=== PATIENT | male | born 1970 | race Caucasian/White ===

== ENCOUNTER 2021-07-26 13:42 | Emergency (ER) | payer OTHER, SELFPAY ==
[2021-07-26 14:32] VITALS: BP 152/77; PULSE 82; RESP 16; TEMP 36.4; O2SAT 95; BMI 34.0
[2021-07-26 15:21] LABS: IDNOW Serial# 08D9AD1C; Influenza A Negative (Negative); Influenza B2 Negative (Negative)
[2021-07-26 15:22] LABS: COVID-19 Test Negative (Negative)
--- NOTE | 2021-07-26 16:30 | ED.GENADULT ---
HPI - General Adult General Chief complaint: Ear Problems Stated complaint: abd pain diarrhea ear pain Time Seen by Provider: 07/26/21 15:42 Source: patient Mode of arrival: ambulatory History of Present Illness HPI narrative: 50-year-old male with no significant past medical history presenting to the ER complaining of right ear pain, abdominal cramping, nausea, and diarrhea x4 days. Denies cough, SOB, CP, vomiting, fever, chills, drainage from ears/hearing loss Onset (ago): day(s) Related Data Allergies Allergy/AdvReac Type Severity Reaction Status Date / Time Penicillins [PCN] Allergy Unknown UNK Verified 07/26/21 14:31 Review of Systems Review of Systems: Constitutional: No Fever, No Chills ENT/Mouth: + Ear Pain, No Nasal Congestion, No sore throat, No Rhinorrhea, No Swallowing Difficulty Cardiovascular: No Chest Pain, No SOB Respiratory: No Cough Gastrointestinal: + Nausea, No Vomiting, + Diarrhea, No Constipation, + Abdominal cramping Genitourinary: No Dysuria, No Urinary Frequency, No Hematuria Musculoskeletal: No joint pain, No Myalgias, No Joint Swelling Skin: No Skin Lesions, No rash Neuro: No Weakness Yes all other systems are reviewed and are negative [facility] Past Medical History Attestation statement: The following information was validated with the patient. Social History Social History Advance Directives: No Advance Directives Information Provided: No Physical Exam ED Vital Signs: Vital Signs - 24 hr 07/26/21 14:32 Temperature 97.6 F Pulse Rate 82 Respiratory Rate 16 Blood Pressure 152/77 H Pulse Oximetry 95 BMI result Body Mass Index 34.0 Const General: cooperative, healthy appearing and no acute distress Orientation/consciousness: patient oriented x3 Limitations: no limitations HENMT Head: Yes normal to inspection and Yes atraumatic Ears: hearing grossly normal bilaterally, external ears normal, TM's normal bilaterally and mastoids normal General nose exam: Normal external nose present Face and sinus: Yes normal facial exam Mouth: Normal oral and palatal mucosa present Throat: Yes posterior oropharynx normal, Yes tonsils normal, Yes uvula midline, No peritonsillar mass, No uvula laterally displaced and No uvular edema Eyes General: appearance normal, both eyes and all related structures EOM: EOMs intact bilaterally Neck Neck: Yes normal visual inspection and Yes no meningeal signs Resp Effort & Inspection: normal respiratory effort and no respiratory distress Auscultation: clear to auscultation bilaterally, no crackles, no rales, no rhonchi and no wheezes Cardio Rate: regular rate Heart sounds: S1 normal heart sound present and S2 normal heart sound present GI Inspection: Yes normal to inspection Palpation (GI): Soft to palpation and nontender Skin Rashes: no rashes Wounds: no wounds Neuro General: patient oriented x3, tone normal and no meningeal signs Gait exam (Neuro): Normal gait present Extrem General: Yes normal to inspection Medical Decision Making MDM Narrative Medical decision making narrative: 50-year-old male with no significant past medical history presenting to the ER complaining of right ear pain, abdominal cramping, nausea, and diarrhea x4 days. On exam vital signs stable, NAD/nontoxic appearing, physical exam as above. Concern for viral illness including COVID-19 versus influenza vs gastroenteritis. Low concern for appendicitis/diverticulitis Plan: COVID-19/influenza Medical Records Medical records reviewed: Yes I reviewed the patient's medical records. Lab Data Lab results reviewed: Yes I reviewed the patient's lab results. Labs: Lab Results 07/26/21 07/26/21 Range/Units 14:35 14:35 COVID-19 (MENDEL) Negative (Negative) COVID-19 Clin Com See Note Influenza Type A (MARTIN) Negative (Negative) Influenza Type B (MARTIN) Negative (Negative) Influenza A & B Note See Note Discharge Plan Discharge Clinical Impression: Acute viral syndrome Patient Disposition: Home, Self-Care Instructions: Viral Syndrome (ED) Additional Instructions: You tested negative for COVID-19 and the flu. If symptoms persist or worsen please return to to the emergency department. Please follow-up with your doctor Referrals: Edu La PA [Primary Care Provider] - 3 days
== END 2021-07-26 16:57 | disposition home or self-care (01) ==
PROVIDERS: Emergency Provider Emergency Medicine; PCP Physician Assistant
DX: B34.9 Viral infection, unspecified (principal); H92.01 Otalgia, right ear; R25.2 Cramp and spasm; Z20.822 Contact with and (suspected) exposure to COVID-19
CPT/HCPCS: 87502; 87635; 99283

== ENCOUNTER 2024-08-11 14:14 | Outpatient (AMB) | payer OTHER, SELFPAY ==
[2024-08-11 14:44] VITALS: BP 114/72; PULSE 72; O2SAT 95; BMI 34.9
--- NOTE | 2024-08-11 14:44 | MHC.OFFVIS ---
Vital Signs 08/11/24 14:44 Height 5 ft 9 in Weight 236 lb 6 oz BMI 34.9 BP 114/72 Blood Pressure Location Lt brachial Position Sitting Pulse 72 Pulse Source Pulse Oximeter Pulse Oximetry (%) 95 Oxygen Delivery Method Room Air Intake Visit Reasons: Obstructive sleep apnea Allergies Penicillins [PCN] Allergy (Unknown, Verified 08/11/24 14:50) UNK HPI HPI Obstructive sleep apnea: Details: Yon is a pleasant 53 year old male, current smoker, with 30 pack year history with underlying KATHIA and asthma. He was referred by PCP for management of KATHIA and asthma. He reports prior sleep stusy in 2009 which revealed AHI 69 supine with minimal nocturnal hypoxemia. He started on CPAP therapy, unknown DME, however equipment was lost/[place]ed [place]. He has since been without CPAP therapy and continues with significant loud snoring, daytime fatigue and witnessed apneas. He is interested in restarting CPAP therapy. In regards to asthma, he was diagnosed as an adult, never requiring intubation. He currently uses combivent multiple times per week with good effect. He denies prior inhaler other than albuterol MDI. He continues with dyspnea on exertion and intermittent wheezing. He endorses seasonal allergies, no recent allergy testing. He has a dog at home. He denies any occupational exposures. He denies any pertinent family history. [facility] Social History (Updated 08/11/24 @ 14:49 by Amirah Gutiérrez [facility]) Patient Tobacco Use Status: Current everyday Tobacco user Cigarette Packs Per Day: 2 Cigarettes Per Day: 40 Review of Systems Const Denies chills, Denies excessive sweating, Denies fever(s), Denies headache(s) and Denies night sweats Eyes Denies dry eyes, Denies irritation and Denies itchy eyes ENT Reports Normal hearing present, Denies headache(s), Denies nasal congestion, Denies nasal discharge, Denies post nasal drip and Denies sore throat Card Denies chest pain, Denies chest pain at rest, Denies chest pain with activity, Denies claudication, Denies leg edema, Denies orthopnea and Denies paroxysmal nocturnal dyspnea Resp Denies chest congestion, Denies cough, Denies excessive phlegm production, Denies pain on inspiration, Denies pain with cough and Denies stridor Musc Denies myalgias Neuro Reports Normal hearing present and Denies headache(s) Endo Denies excessive sweating Marc/Lymph Denies lymphadenopathy Aller/Immun Denies itchy eyes Physical Exam Vital Signs: Last Vital Signs Pulse 72 08/11/24 14:44 BP 114/72 08/11/24 14:44 Pulse Ox 95 08/11/24 14:44 Oxygen Delivery Method Room Air 08/11/24 14:44 BMI result Body Mass Index 34.9 Const General: cooperative, healthy appearing, comfortable, no acute distress, well developed and alert Orientation/consciousness: patient oriented x3 Limitations: no limitations HEENT Head: Yes normal to inspection, Yes normocephalic and Yes atraumatic Ears: hearing grossly normal bilaterally and external ears normal Eyes General: appearance normal, both eyes and all related structures Eyelids: Yes eyelids normal Sclerae: sclerae normal EOM: EOMs intact bilaterally Neck Neck: Yes normal visual inspection and Yes no lymphadenopathy Lymphatic: no lymphadenopathy noted Chest Chest palpation & inspection: normal inspection of the chest Resp Effort & Inspection: normal respiratory effort, able to speak in complete sentences, no audible wheezes, no cough, no stridor, not tachypneic, no tripod positioning and no use of accessory muscles Auscultation: clear to auscultation bilaterally Cardio Jugular venous distension: no JVD Rate: regular rate Rhythm: regular rhythm Skin Other: warm, dry General skin exam: no rashes or lesions noted Neuro General: patient oriented x3 Cranial nerves: Yes Normal hearing present Cognition (Neuro): normal cognition Gait exam (Neuro): Normal gait present Extrem General: Yes normal to inspection, Yes capillary refill normal, Yes no clubbing, cyanosis or edema and Yes no pedal edema Psych Appearance: grossly normal and well kempt Speech and movement: Normal speech and movement present and Clear speech present Affect: normal affect Attitude: cooperative Thought process: Normal thought process present Thought content: Normal thought content present Insight: Good insight present (Psych) Judgement: Good judgement present (Psych) Assessment & Plan Assessment & Plan (1) Asthma: Code(s): J45.909 - Unspecified asthma, uncomplicated Category: Medical (2) Daytime somnolence: Code(s): R40.0 - Somnolence Category: Medical (3) Nicotine dependence, cigarettes, uncomplicated: Code(s): F17.210 - Nicotine dependence, cigarettes, uncomplicated Category: Medical (4) Environmental allergies: Code(s): Z91.09 - Other allergy status, other than to drugs and biological substances Category: Medical Plan Yon presents for pulmonary evaluation with known history of severe KATHIA and asthma. Will send for updated home sleep study as patient's last sleep study was 2009. Will send for PFT to assess severity of obstructive defect. Will send for RAST to assess for an allergic component. Discussed empirically trialing ICS/LABA however patient would like to hold off until PFT results. Patient with significant smoking history, smoking 2 ppd for the last 15 years. Smoking cessation reviewed. Will send for CT chest given smoking history. All questions were answered and patient is in agreement of plan. Will follow up in 8-10 weeks to review results or sooner if needed. Orders: Orders Resp Allergy Profile Region I Today Z91.09 - Other allergy status, other than to drugs and biological substances Complete Blood Count Auto Diff Today Z91.09 - Other allergy status, other than to drugs and biological substances Immunoglobulin E Today Z91.09 - Other allergy status, other than to drugs and biological substances PFT pulmonary function test Today J45.909 - Unspecified asthma, uncomplicated CT lung screening Today F17.210 - Nicotine dependence, cigarettes, uncomplicated Coding Level of Care Code New Pt Level 4 (17719) Diagnoses Asthma J45.909 Daytime somnolence R40.0 Nicotine dependence, cigarettes, uncomplicated F17.210 Environmental allergies Z91.09
== END 2024-08-11 15:22 | disposition home or self-care (01) ==
LOC: HO.HPSW 14:14
PROVIDERS: PCP Physician Assistant; Visit Provider Nurse Practitioner Family
DX: J45.909 Unspecified asthma, uncomplicated (principal); R40.0 Somnolence; F17.210 Nicotine dependence, cigarettes, uncomplicated; Z91.09 Other allergy status, other than to drugs and biological substances
CPT/HCPCS: 99204

== ENCOUNTER 2024-08-11 15:25 | Outpatient (REF) | payer OTHER, SELFPAY ==
--- OUTSIDE RECORDS SUMMARY | 2024-08-11 15:29 | XMS_ITS | Clinical Summary ---
Author Organization [facility] [address] [place] [address] Address [address] Phone Care Team Providers Care Cylinder Tester Name Role Phone Migel Hu MD Primary Care Provider [phone] Allergies Active Allergy Reactions Criticality Noted Date Comments Penicillins 05/15/2011 Was a baby doesn't know Medications albuterol HFA (PROAIR HFA ; PROVENTIL HFA ; VENTOLIN HFA) 90 mcg/actuation inhaler Inhale 2 Puffs into the lungs every 6 hours as needed for Cough or Wheezing. 4 Active hydrocortisone 2.5 % cream Apply thin layer to affected area bid, 2 weeks per month only 1 Active ipratropium-alb uteroL (Combivent Respimat) 20-100 mcg/actuation inhaler Inhale 1 Puff into the lungs 4 times daily. As needed for coughing, wheezing, shortness of breath 4 Active L. acidophilus/Lac tobac spor (ACIDOPHILUS EX STR, L. SPOROG, ORAL) Probiotic Product (Probiotic & Acidophilus Ex St) Cap Take 1 Capsule by mouth daily. 2 Active triamcinolone acetonide (KENALOG-40) 40 mg/mL injection Inject 1 mL into the articular space once for 1 dose. 4 Active gabapentin (NEURONTIN) 100 mg capsule Take 1 Capsule by mouth at bedtime. - Oral Active DICLOFENAC SODIUM ORAL Apply 1 g topically 4 times daily as needed (pain). - Apply externally Active SUMAtriptan (IMITREX) 100 mg tablet Take 1 tablet (100 mg total) by mouth 1 (one) time if needed for migraine. May repeat dose once in 2 hours if no relief. Do not exceed 2 doses in 24 hours. 9 tablet 1 5 Active naproxen (NAPROSYN) 500 mg tablet Take 1 tablet (500 mg total) by mouth 2 (two) times a day if needed for mild pain (pain). 60 tablet 5 10/06/19 25 Active atorvastatin (LIPITOR) 20 mg tablet Take 1 tablet (20 mg total) by mouth at bedtime. 90 each 1 5 01/04/20 25 Active cetirizine (ZyrTEC) 10 mg tablet Take 1 tablet (10 mg total) by mouth 1 (one) time each day. 90 tablet 1 5 Active Active Problems Problem Noted Date Diagnosed Date Prediabetes 07/07/2024 Eczema 12/17/2023 Hemorrhoids 12/17/2023 Migraines 12/17/2023 Overview (12/17/2023): Saw neuro Dr Padilla 06/19/17 Wheezing 09/11/2021 Chronic pain of right knee 05/07/2017 Internal derangement of right knee 05/07/2017 Recurrent right knee instability 07/20/2013 History of cocaine abuse ([facility] V24, [facility] V 28) 01/04/2012 Sleep apnea 11/01/2011 Hypercholesteremia 08/23/2011 Sleep disorder breathing 08/23/2011 Encounters Date Type Department Care Team Description 07/07/2024 3:45 PM EDT - 07/07/2024 11:59 PM EDT Hospital Encounter [address] [phone] Chronic bilateral low back pain with right-sided sciatica Discharge Disposition: Home or Self Care 07/07/2024 3:00 PM EDT Office Visit Adult Medicine [address] [phone] Ryan Christina PA Hyperlipidemia, unspecified hyperlipidemia type (Primary Dx); Prediabetes; Sleep apnea, unspecified type; Tobacco abuse; Chronic bilateral low back pain with right-sided sciatica; Bilateral chronic knee pain; Need for tetanus, diphtheria, and acellular pertussis (Tdap) vaccine; Screening for malignant neoplasm of colon; Seasonal allergies 06/04/2024 Telephone Adult Medicine [address] [phone] Migel Hu MD Labs Only from Last 3 Months Immunizations Name Administration Dates Next Due PPD Test 06/10/2015 Tdap Tetanus diptheria acell ular pertussis (Boostrix; Adacel) 7yo and older 07/07/2024,03/04/2012 Medical History Medical History Date Comments Eczema DX:Eczema Environmental allergies DX:Envir onmental allergies Hemorrhoids DX:Hemorrhoids Migraines DX:Migraines Asthma DX:Asthma Family History Medical History Relation Name Comments Dementia Father diabetes Heart attack Mother Diabetes Sister No Known Problems Son 1 No Known Problems Son 2 No Known Problems Son 3 Relation Name Status Comments Brother Alive Father Alive Maternal Grandfather Maternal Grandmother Mother Paternal Grandfather Paternal Grandmother Sister Alive Son 1 Alive Son 2 Alive Son 3 Alive Social History Tobacco Use Types Packs/Day Years Used Date Smoking Tobacco: Every Day Cigarettes Smokeless Tobacco: Never Tobacco Cessation:Ready to Q uit: Not Asked; Counseling Given: Not Answered Alcohol Use Standard Drinks/Week Comments Never 0 (1 standard drink = 0.6 oz pur e alcohol) Sex and Gender Information Value Date Recorded Sex Assigned at Not on file Legal Sex Male 5:43 AM EST Gender Identity Not on file Sexual Orientation Not on file Obstetrics History Last Filed Vital Signs Vital Sign Reading Time Taken Comments Blood Pressure 108/62 07/07/2024 3:00 PM EDT Pulse 88 07/07/2024 3:00 PM EDT Temperature 36.5 ??C (97.7 ??F) 07/07/2024 3:00 PM ED T Respiratory Rate - - Oxygen Saturation 96% 07/07/2024 3:00 PM EDT Inhaled Oxygen Concentration - - Weight 96.7 kg (213 lb 1.6 oz) 07/07/2024 3:00 P M EDT Height 175.3 cm (5' 9.02 ) 07/07/2024 3:00 PM ED T Body Mass Index 31.45 07/07/2024 3:00 PM EDT Plan of Treatment Upcoming Encounters Date Type Department Care Team (Late st Contact Info) Description 08/20/2024 11:00 AM EDT Evaluation [facility] [address] [facility] [address] [place] [phone] Dean Navarrete, PT [address] [place] [address] 09/04/2024 12:00 PM EDT Appointment [facility] [address] [place] [phone] Kosta Ny MD [address] [facility] [address] [place] [address] 01/19/2025 4:30 PM EST Office Visit Adult Medicine [facility] [address] [place] [phone] Migel Hu MD [address] [place] [phone] Health Maintenance Due Date Last Done Comments Hepatitis B Vaccines (1 of 3 - 19+ 3-dose series) 10/21/1990 Pneumococcal Vaccine: 50+ Years (1 of 2 - PCV) 10/21/1990 Pneumococcal Vaccine: Pediatrics (0 to 5 Years) and At-Risk Patients (6 to 64 Years) (1 of 2 - PCV) 10/21/1990 Zoster Vaccines (1 of 2) 10/21/2021 Colorectal Cancer Screening: Colonoscopy 02/18/2022 Depression Screening 02/18/2022 Social Influencers of Health Screening 02/18/2022 COVID-19 Vaccine (3 - 2023-2 5 season) 2023 08/18/2020, 07/20/2020 Influenza Vaccine (Season Ended) 2024 Cholesterol Screening (Lipid Panel) 07/06/2029 07/06/2024, 05/30/2012 DTaP,Tdap,and Td Vaccines (3 - Td or Tdap) 07/07/2034 07/07/2024, 03/04/2012 HIV Screening Completed 10/27/2019 Hepatitis C Screening Completed 10/27/2019 HIB Vaccines Aged Out No longer eligi ble based on patient's age to complete this topic HPV Vaccines Aged Out No longer eligi ble based on patient's age to complete this topic Hepatitis A Vaccines Aged Out No long er eligible based on patient's age to complete this topic IPV Vaccines Aged Out No longer eligi ble based on patient's age to complete this topic MMR Vaccines Aged Out No longer eligi ble based on patient's age to complete this topic Meningococcal ACWY Vaccine Aged Out N o longer eligible based on patient's age to complete this topic Meningococcal B Vaccine Aged Out No l onger eligible based on patient's age to complete this topic RSV Immunization Patients Under 20 months Aged Out No longer eligible b ased on patient's age to complete this topic Varicella Vaccines Aged Out No longer eligible based on patient's age to complete this topic Procedures Procedure Name Priority Date/Time Associated Diagnosis Comments XR LUMBAR SPINE 4+ VIEWS Routine 07/07/2024 4:03 PM EDT Chronic bilateral low back pain with right-sided sciatica BASIC METABOLIC PANEL Routine 07/06/2024 9:50 AM EDT Hypercholesteremia LIPID PANEL WITH REFLEX TO DIRECT LDL Routine 07/06/2024 9:50 AM EDT Hypercholesteremia HEMOGLOBIN A1C Routine 07/06/2024 9:50 AM EDT Screening for diabetes mellitus HEPATITIS C SCREENING Routine 10/27/2019 HIV SCREENING Routine 10/27/2019 from Last 3 Months or Most Recently Relevant to Health Maintenance Results * XR Lumbar Spine 4+ Views (07/07/2024 4:03 PM EDT) Anatomical Region Laterality Modality Spine, L-spine Radiographic Peg ging 07/07/2024 8:10 PM EDT Impressions 07/07/2024 8:11 PM EDT No acute fracture or dislocation of the lumbar spine. -------- FINAL REPORT -------- Dictated By: Stephen Walker Dictated Date: 07/07/2024 20:10 ET Assigned Physician: Stephen Walker Reviewed and Electronically Signed By: Stephen Walker Signed Date: 07/07/2024 20:11 ET Workstation ID: [id number] Transcribed By: Self Edit Transcribed Date: 07/07/2024 20:10 ET Narrative 07/07/2024 8:11 PM EDT HISTORY: chronic low back pain with right sided sciatica TECHNIQUE: 4 views of the lumbar spine COMPARISON: None FINDINGS: Vertebral body height and disc spaces are preserved. ??No acute fracture or dislocation is seen. ??The spinal alignment is well maintained without evidence of spondylolisthesis. ??Mild neuroforaminal stenosis at multiple levels. ??The sacroiliac joints are unremarkable. Procedure Note Stephen Walker MD - 07/07/2024 HISTORY: chronic low back pain with right sided sciatica TECHNIQUE: 4 views of the lumbar spine COMPARISON: None FINDINGS: Vertebral body height and disc spaces are preserved. No acute fracture ordislocation is seen. The spinal alignment is well maintained withoutevidence of spondylolisthesis. Mild neuroforaminal stenosis at multiplelevels. The sacroiliac joints are unremarkable. IMPRESSION: No acute fracture or dislocation of the lumbar spine. -------- FINAL REPORT -------- Dictated By: Stephen Walker Dictated Date: 07/07/2024 20:10 ET Assigned Physician: Stephen Walker Reviewed and Electronically Signed By: Stephen Walker Signed Date: 07/07/2024 20:11 ET Workstation ID: [id number] Transcribed By: Self Edit Transcribed Date: 07/07/2024 20:10 ET Ryan SEBASTIAN IMG XR PROCEDURES Final Result * (ABNORMAL) Lipid panel with reflex to direct LDL (07/06/2024 9:50 AM EDT) Cholesterol 280(H) 0 - 200 mg/dL LAB CHEMISTRY METHOD 07/06/2024 3:35 PM EDT [facility] Triglycerides 252(H) 0 - 150 mg/dL LAB CHEMISTRY METHOD 07/06/2024 3:35 PM EDT [facility] HDL 31(L) >=40 mg/dL LAB CHEMISTRY METHOD 07/06/2024 3:35 PM EDT [facility] LDL Calculated 199(H) 0 - 100 mg/dL LAB CHEMISTRY METHOD 07/06/2024 3:35 PM EDT [facility] VLDL Cholesterol Bird 50.4 mg/dL LAB CHEMISTRY METHOD 07/06/2024 3:35 PM EDT [facility] Non HDL Chol. (LDL+VLDL) 249(H) <145 mg/dL LAB CHEMISTRY METHOD 07/06/2024 3:35 PM EDT [facility] Chol/HDL Ratio 9.0(H) 0.0 - 4.4 LAB CHEMISTRY METHOD 07/06/2024 3:35 PM EDT [facility] Blood Venous blood specimen / Unknown Venipuncture / Unknown 07/06/2024 9:50 AM EDT 07/06/2024 9:50 AM EDT Ryan SEBASTIAN LAB BLOOD ORDERABLES Fi nal Result [facility] [address] [place] [address], * Hemoglobin A1c (07/06/2024 9:50 AM EDT) Hemoglobin A1C 6.0 <6.5 % LAB CHEMISTRY METHOD 07/06/2024 2:19 PM EDT [facility] Mean Bld Glu Estim. 126 mg/dL LAB CHEMISTRY METHOD 07/06/2024 2:19 PM EDT [facility] Blood Venous blood specimen / Unknown Venipuncture / Unknown 07/06/2024 9:50 AM EDT 07/06/2024 9:50 AM EDT Ryan SEBASTIAN LAB BLOOD ORDERABLES Fi nal Result [facility] [address] [place] [address], [place] [phone] * (ABNORMAL) Basic metabolic panel (07/06/2024 9:50 AM EDT) Pathologist [facility] Sodium 138 133 - 145 mmol/L LAB CHEMISTRY METHOD 07/06/2024 3:35 PM T [facility] Potassium 4.2 3.5 - 5.5 mmol/L LAB CHEMISTRY METHOD 07/06/2024 3:35 PM [facility] Chloride 106 96 - 110 mmol/L LAB CHEMISTRY METHOD 07/06/2024 3:35 PM [facility] CO2 24 21 - 32 mmol/L LAB CHEMISTRY METHOD 07/06/2024 3:35 PM [facility] Anion Gap 8 3 - 11 LAB CHEMISTRY METHOD 07/06/2024 3:35 PM [facility] Glucose 111(H) 70 - 100 mg/dL LAB CHEMISTRY METHOD 07/06/2024 3:35 PM [facility] BUN 14 5 - 25 mg/dL LAB CHEMISTRY METHOD 07/06/2024 3:35 PM [facility] Creatinine 1.05 0.70 - 1.30 mg/dL LAB CHEMISTRY METHOD 07/06/2024 3:35 PM [facility] eGFR 85 >=60 mL/min/1. 73m2 LAB CHEMISTRY METHOD 07/06/2024 3:35 PM [facility] Comment:Calculation based on the??Chronic Kidney Disease Epidemiology Collaboration (CKD-EPI) equation refit??without adjustment for race. BUN/Creatinine Ratio 13.3 LAB CHEMISTRY METHOD 07/06/2024 3:35 PM [facility] Calcium 9.5 8.5 - 10.5 mg/dL LAB CHEMISTRY METHOD 07/06/2024 3:35 PM EDT [facility] Blood Venous blood specimen / Unknown Venipuncture / Unknown 07/06/2024 9:50 AM EDT 07/06/2024 9:50 AM EDT Ryan SEBASTIAN LAB BLOOD ORDERABLES Fi nal Result [facility] [address] [place] [address], [place] [phone] * HIV Screening (10/27/2019) HIV Screening Abstracted Historical Provider HEALTH MAINTENANCE Final Result * Hepatitis C Screening (10/27/2019) Hepatitis C Screening Abstracted Historical Provider HEALTH MAINTENANCE Final Result from Last 3 Months or Most Recently Relevant to Health Maintenance Insurance [place] [facility] Care Teams Cylinder Tester Relationship Specialty Start Date End Date Migel Hu MD [address] [place] [phone] PCP - General Internal Medicine 01/22/24
[2024-08-11 17:51] LABS: MANUAL DIFF FLAG NO
[2024-08-11 18:09] LABS: Basophils Percent Auto 0.5 % (0-2); Eosinophils Absolute Auto 0.2 X10*3/uL (0.0-0.4); Eosinophils Percent Auto 2.1 % (0-4); Hematocrit 44.5 % (42.0-52.0); Hemoglobin 15.3 g/dl (14.0-18.0); Imm Gran Abs Auto 0.04 X10*3/uL (0.00-0.03); Imm Gran Pct Auto 0.5 % (0.0-0.4); Lymphocytes Absolute Auto 2.8 X10*3/uL (1.2-4.9); Lymphocytes Percent Auto 31.5 % (20-40); Mean Corpuscular HGB Conc 34.4 g/dl (31.0-36.0); Mean Corpuscular Hemoglobin 29.3 pg (27.0-33.0); Mean Corpuscular Volume 85.2 fL (80.0-98.0); Mean Platelet Volume 10.1 fL (9.4-12.4); Monocytes Absolute Auto 0.6 X10*3/uL (0.1-1.2); Monocytes Percent Auto 6.7 % (2-11); Neutrophils Absolute Auto 5.2 x10*3/uL (2.0-8.3); Neutrophils Percent Auto 58.7 % (45-73); Platelet Count 287 X10*3/uL (160-400); Red Blood Count 5.22 X10*6/uL (4.60-5.80); Red Cell Distribution Width 14.2 % (11.0-16.0); White Blood Count 8.9 X10*3/uL (4.8-10.8)
[2024-08-12 05:59] LABS: Immunoglobulin E 71 kU/L (<OR=114)
[2024-08-14 06:14] LABS: Class Alternaria alternata 0; Class Aspergillus fumigatus 0; Class Bermuda Grass 0; Class Birch 0; Class Cat Dander 0; Class Cladosporium herbarum 0; Class Cockroach 0/1; Class Common Ragweed 0; Class Cottonwood 0; Class Derm. pterony 2; Class Dermatophagoides farinae 2; Class Dog Dander 0; Class Elm 0; Class Maple Box Elder 0; Class Mountain Cedar 0; Class Mouse Urine Protein 0; Class Mugwort 0; Class Oak 0; Class Penicillium crysogenum 0; Class Rough Pigweed 0; Class Sheep Sorrel 0; Class Sycamore 0; Class Timothy Grass 0; Class Walnut Tree 0; Class White Ash 0; Class White Mulberry 0; D001 IgE D pteronyssinus 1.66 kU/L; D002 - IgE D farinae 2.69 kU/L; E001 - IgE Cat Dander <0.10 kU/L; E005 - IgE Dog Dander <0.10 kU/L; E072-IgE Mouse Urine <0.10 kU/L; G002 IgE Bermuda Grass <0.10 kU/L; G006 - IgE Timothy Grass <0.10 kU/L; I006-IgE Cockroach, German 0.24 kU/L; Immunoglobulin E 81 kU/L (<OR=114); M001 IgE Penicillium chrysogen <0.10 kU/L; M002 - IgE Cladosporium herbar <0.10 kU/L; M003 - IgE Aspergillus fumigat <0.10 kU/L; M006 - IgE Alternaria alternat <0.10 kU/L; T001 IgE Maple/Box Elder <0.10 kU/L; T003 IgE Common Silver Birch <0.10 kU/L; T006 - IgE Cedar, Mountain <0.10 kU/L; T007 - IgE Oak, White <0.10 kU/L; T008 IgE Elm, American <0.10 kU/L; T010 - IgE Walnut <0.10 kU/L; T011 - IgE Maple Leaf Sycamore <0.10 kU/L; T014 - IgE Cottonwood <0.10 kU/L; T015 - IgE Ash, White <0.10 kU/L; T070 - IgE White Mulberry <0.10 kU/L; W001 - IgE Ragweed, Short <0.10 kU/L; W006 - IgE Mugwort <0.10 kU/L; W014 IgE Pigweed, Common <0.10 kU/L; W018 IgE Sheep Sorrel <0.10 kU/L
== END 2024-08-11 15:26 | disposition home or self-care (01) ==
LOC: HO.WFDLDS 15:25
PROVIDERS: Visit Provider Nurse Practitioner Family
DX: Z91.09 Other allergy status, other than to drugs and biological substances (principal); J45.909 Unspecified asthma, uncomplicated; R40.0 Somnolence; F17.210 Nicotine dependence, cigarettes, uncomplicated
CPT/HCPCS: 36415; 82785; 85025; 86003; 99202

== ENCOUNTER 2024-11-09 16:09 | Outpatient (REF) | payer OTHER, SELFPAY ==
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
--- OUTSIDE RECORDS SUMMARY | 2024-11-09 18:01 | XMS_ITS ---
Author Name [facility] Organization Unknown Care Team Organization Name Specialty Phone Email Start Date End Da te [facility]ELIM[facility] Primary Care 01/23/2022 4
== END 2024-11-09 16:10 | disposition home or self-care (01) ==
LOC: HO.CT 16:09
PROVIDERS: PCP Internal Medicine; Visit Provider Nurse Practitioner Family
DX: Z12.2 Encounter for screening for malignant neoplasm of respiratory organs (principal); F17.210 Nicotine dependence, cigarettes, uncomplicated
CPT/HCPCS: 71271

== ENCOUNTER → 2024-11-09 16:11 | Outpatient (BNV) | payer OTHER, SELFPAY | PROVIDERS: PCP Internal Medicine; Visit Provider Radiology Diagnostic Radiology | DX: F17.210 Nicotine dependence, cigarettes, uncomplicated (principal) | CPT/HCPCS: 71271 ==